=== PATIENT | female | born 1955 | race Caucasian/White ===

== ENCOUNTER 2018-01-31 10:47 | Observation (INO) | payer BC ==
[~2018-01-31] VITALS: Ht 162.6 cm; Wt 82.0 kg
[~2018-01-31 10:47] MED LIST: CALC1TAB2 PO; DOCU-28 PO; MULT-1085 PO
[2018-01-31 11:38] LABS: HEMATOCRIT 43.7 % (35.0-45.0); HEMOGLOBIN 14.9 g/dl (12.0-16.0); MEAN CORPUSCULAR HEMOGLOBIN 30.8 PG (27.0-31.0); MEAN CORPUSCULAR VOLUME 90.4 FL (78-98); RED BLOOD COUNT 4.83 X10'6 (4.20-5.60); WHITE BLOOD COUNT 9.8 X10'3 (4.5-11.0)
[2018-01-31 11:39] LABS: BASOPHILS # (AUTO) 0.1 X10'3 (0-0.2); BASOPHILS % (AUTO) 0.6 % (0-1); EOSINOPHILS # (AUTO) 0.1 X10'3 (0-0.9); EOSINOPHILS % (AUTO) 1.5 % (0-6); LYMPHOCYTES # (AUTO) 2.3 X10'3 (1.1-4.8); LYMPHOCYTES % (AUTO) 23.2 % (21-51); MEAN CORPUSCULAR HGB CONC 34.1 % (33.0-36.5); MEAN PLATELET VOLUME 7.8 FL (7.4-10.4); MONOCYTES # (AUTO) 0.5 X10'3 (0-0.9); MONOCYTES % (AUTO) 4.9 % (2-12); NEUTROPHILS # (AUTO) 6.8 X10'3 (1.8-7.7); NEUTROPHILS % (AUTO) 69.8 % (42-75); PLATELET COUNT 319 X10'3 (140-440); RED CELL DISTRIBUTION WIDTH 12.8 % (11.5-14.5)
[2018-01-31 11:46] LABS: INR 0.9 INR; PARTIAL THROMBOPLASTIN TIME 25 SECONDS (22-32); PROTHROMBIN TIME 9.6 SECONDS (9.0-12.0)
[2018-01-31 11:51] LABS: ALANINE AMINOTRANSFERASE 53 U/L (12-78); ALBUMIN/GLOBULIN RATIO 1.2 (1.1-1.5); ALKALINE PHOSPHATASE 106 IU/L (46-116); ANION GAP 13 (8-16); ASPARTATE AMINO TRANSFERASE 27 U/L (10-37); BILIRUBIN,TOTAL 0.4 MG/DL (0.1-1.0); BLOOD UREA NITROGEN 9 MG/DL (7-18); BUN/CREATININE RATIO 9.5 (6.6-38.0); CALCIUM 10.4 MG/DL (8.5-10.1); CHLORIDE 106 MMOL/L (99-107); CREATININE 0.95 MG/DL (0.40-0.90); GLUCOSE 116 MG/DL (70-104); POTASSIUM 3.8 MMOL/L (3.5-5.1); SODIUM 143 MMOL/L (135-145); TOTAL CARBON DIOXIDE 24.5 MMOL/L (24-32); TOTAL PROTEIN 7.4 G/DL (6.4-8.2); eGFR 59 ML/MIN
[2018-01-31] MEDS ORDERED: LORazepam 2 mg/ml vial IV ONE (12:25)
[2018-01-31 12:47] LABS: D-DIMER 0.56 MG/L FEU (0-0.50)
[2018-01-31] MEDS ORDERED: iohexol 350MG/ML 100ml bottle IV ONE (13:21)
[2018-01-31] MEDS ORDERED: enoxaparin 100mg/ml syringe SUBCUT ONE (14:15)
[2018-01-31] MEDS ORDERED: mag hydrox/Alum hydrox/simeth 30ml oral suspension PO PRN (16:30)
[2018-01-31] MEDS ORDERED: magnesium hydroxide 30ml (MOM) UD suspension PO PRN (16:30)
[2018-01-31] MEDS ORDERED: acetaminophen 325mg tablet PO PRN ×2 (16:30)
[2018-01-31] MEDS ORDERED: ondansetron/PF 4mg/2ml inj IV PRN (16:30)
[2018-01-31 21:10] VITALS: BP 160/94
[2018-02-01] VITALS: BP 136/90
[2018-02-01 07:10] VITALS: BP 128/85
[2018-02-01] MEDS ORDERED: apixaban 5mg tablet PO SCH (08:00)
[2018-02-01] MEDS ORDERED: pneumococcal 23-VAL P-sac vacc 25 mcg/0.5ml vial IMVAC ONE (10:00)
[2018-02-01 11:36] VITALS: BP 146/90
[2018-02-01] MEDS ORDERED: APIX5TAB3 PO ×2 (11:36)
[2018-02-01] MEDS ORDERED: AMLO5TAB16 PO (11:36)
[2018-02-01] MEDS ORDERED: LISI-604 PO (15:06)
[2018-02-01] MEDS ORDERED: ATOR20TA66 PO (15:12)
[2018-02-01] MEDS ORDERED: CARV3.12 PO (15:12)
[2018-02-01] MEDS ORDERED: docusate sod 100mg capsule PO SCH (20:00)
[2018-02-02] MEDS ORDERED: multivitamins, therapeutics tablet PO SCH (08:00)
[2018-02-02] MEDS ORDERED: calcium carbonate/vitamin D3 tablet PO SCH (08:00)
== END 2018-02-01 13:33 | disposition home or self-care (01) ==
LOC: ER 10:47 → ED HOLD 16:27 → EDBEDREQ 18:16 → SUR 3N 19:12
PROVIDERS: ADMIT Hospitalist; ATTEND Hospitalist
DX: I26.99 Other pulmonary embolism without acute cor pulmonale (principal); Z23 Encounter for immunization; I10 Essential (primary) hypertension; R79.1 Abnormal coagulation profile; F12.90 Cannabis use, unspecified, uncomplicated; Z79.01 Long term (current) use of anticoagulants; Z79.899 Other long term (current) drug therapy; Z85.3 Personal history of malignant neoplasm of breast; Z90.11 Acquired absence of right breast and nipple
CPT/HCPCS: 36415; 71045; 71275; 80053; 84484; 85025; 85379; 85610; 85730; 87070; 90471; 90472; 90732; 93005; 93306; 93970; 96372; 96374; 99285; G0378; J1650; J2060; Q2037; Q9967

== ENCOUNTER 2018-04-29 00:28 | Emergency (ER) | payer MEDICARE, BC ==
[~2018-04-29] VITALS: Ht 162.6 cm; Wt 79.5 kg
[~2018-04-29 00:28] MED LIST changes: +ALBU6.7H INH; +APIX5TAB3 PO; +ATOR20TA66 PO; +CARV3.12 PO; +LISI-604 PO
[2018-04-29] MEDS ORDERED: methylPREDNISolone sod succ 125mg/2ml vial IV ONE (00:45)
[2018-04-29 01:21] LABS: ALANINE AMINOTRANSFERASE 81 U/L (12-78); ALBUMIN 3.8 G/DL (3.4-5.0); ALBUMIN/GLOBULIN RATIO 1.1 (1.1-1.5); ALKALINE PHOSPHATASE 116 IU/L (46-116); ANION GAP 11 (8-16); ASPARTATE AMINO TRANSFERASE 54 U/L (10-37); BILIRUBIN,TOTAL 0.5 MG/DL (0.1-1.0); BLOOD UREA NITROGEN 9 MG/DL (7-18); BUN/CREATININE RATIO 8.5 (6.6-38.0); CALCIUM 8.9 MG/DL (8.5-10.1); CHLORIDE 101 MMOL/L (99-107); CREATININE 1.06 MG/DL (0.40-0.90); D-DIMER 0.61 MG/L FEU (0-0.50); GLUCOSE 179 MG/DL (70-104); PARTIAL THROMBOPLASTIN TIME 26 SECONDS (22-32); POTASSIUM 3.1 MMOL/L (3.5-5.1); SODIUM 140 MMOL/L (135-145); TOTAL CARBON DIOXIDE 28.1 MMOL/L (24-32); TOTAL PROTEIN 7.3 G/DL (6.4-8.2); eGFR 52 ML/MIN
[2018-04-29 01:24] LABS: BASOPHILS % (AUTO) 0.4 % (0-1); EOSINOPHILS # (AUTO) 0.1 X10'3 (0-0.9); EOSINOPHILS % (AUTO) 1.4 % (0-6); HEMATOCRIT 43.6 % (35.0-45.0); HEMOGLOBIN 14.3 g/dl (12.0-16.0); LYMPHOCYTES # (AUTO) 3.9 X10'3 (1.1-4.8); LYMPHOCYTES % (AUTO) 40.7 % (21-51); MEAN CORPUSCULAR HEMOGLOBIN 30.8 PG (27.0-31.0); MEAN CORPUSCULAR HGB CONC 32.8 % (33.0-36.5); MEAN CORPUSCULAR VOLUME 93.8 FL (78-98); MEAN PLATELET VOLUME 8.4 FL (7.4-10.4); MONOCYTES # (AUTO) 0.7 X10'3 (0-0.9); MONOCYTES % (AUTO) 7.3 % (2-12); NEUTROPHILS # (AUTO) 4.9 X10'3 (1.8-7.7); NEUTROPHILS % (AUTO) 50.2 % (42-75); PLATELET COUNT 258 X10'3 (140-440); RED BLOOD COUNT 4.65 X10'6 (4.20-5.60); RED CELL DISTRIBUTION WIDTH 13.1 % (11.5-14.5); TROPONIN I < 0.04 NG/ML (0.0-0.05); WHITE BLOOD COUNT 9.6 X10'3 (4.5-11.0)
[2018-04-29] MEDS ORDERED: potassium Cl 20 mEq SR tablet PO ONE (01:55)
[2018-04-29] MEDS ORDERED: APIX5TAB3 PO (02:02)
[2018-04-29] MEDS ORDERED: PRED10TA PO (02:05)
[2018-04-29 02:23] VITALS: BP 113/82
== END 2018-04-29 02:36 | disposition home or self-care (01) ==
LOC: ER 00:29
DX: J44.1 Chronic obstructive pulmonary disease with (acute) exacerbation (principal); E78.00 Pure hypercholesterolemia, unspecified; I10 Essential (primary) hypertension; Z86.711 Personal history of pulmonary embolism; F12.90 Cannabis use, unspecified, uncomplicated; Z88.1 Allergy status to other antibiotic agents; Z88.5 Allergy status to narcotic agent; Z90.89 Acquired absence of other organs; Z79.899 Other long term (current) drug therapy
CPT/HCPCS: 36415; 71045; 80053; 84484; 85025; 85379; 85610; 85730; 93005; 96372; 99284; J2930

== ENCOUNTER 2020-12-04 17:36 | Emergency (ER) | payer BC, MEDICARE ==
[~2020-12-04 17:36] MED LIST changes: -ALBU6.7H INH; +ALBU6.7H9 INH; -LISI-604 PO; +LISI-790 PO; +PRED10TA PO
--- NOTE | 2020-12-04 19:13 | NUR ---
Not in lobby
== END 2020-12-04 19:48 | disposition left against medical advice (07) ==
LOC: ER 17:36
DX: Z53.21 Procedure and treatment not carried out due to patient leaving prior to being seen by health care provider (principal)